=== PATIENT | female | born 1955 | race Caucasian/White ===

== ENCOUNTER 2019-12-26 07:50 | Day surgery (SDC) | payer OTHER ==
[~2019-12-26 07:50] MED LIST: Lactated Ringers 1,000 ML IV SCH; Lidocaine 1%/Sod Bicarbonate in NS 8.4% 1 ML Syringe IDERM PRN; Sodium Chloride 0.9% 10 ML Syringe FLUSH PRN
--- NOTE | 2019-12-26 08:34 | PCM.PREANE ---
Preanesthetic Assessment - Procedure Proposed Procedure: screening colonoscopy - Anesthesia/Transfusion/Family Hx Anesthesia History: Prior Anesthesia Without Reaction Family History of Anesthesia Reaction: No Transfusion History: Prior Transfusion Without Reaction - Review of Systems General: No Symptoms Pulmonary: No Symptoms Cardiovascular: No Symptoms Gastrointestinal: No Symptoms Neurological: No Symptoms Other: Reports: None - Physical Assessment NPO Status Date: 12/26/19 NPO Status Time: 04:15 (prep) Vital Signs: 130/72 71 100% 16 98.4 Height: 5 ft 2 in Weight: 67 kg ASA Class: 2 Mental Status: Alert & Oriented x3 Airway Class: Mallampati = 1 Dentition: Reports: Normal Dentition Thyro-Mental Finger Breadths: 3 Mouth Opening Finger Breadths: 3 ROM/Head Extension: Full Lungs: Clear to Auscultation, Normal Respiratory Effort Cardiovascular: Regular Rate, Regular Rhythm, No Murmurs - Allergies Allergies/Adverse Reactions: Allergies Allergy/AdvReac Type Severity Reaction Status Date / Time mold Allergy Cannot Verified 12/25/19 14:49 Remember tramadol AdvReac Nausea and Verified 12/25/19 14:49 Vomiting dust Allergy Cannot Uncoded 12/25/19 14:49 Remember - Blood Blood Available: No - Acknowledgements Anesthesia Type Planned: MAC Pt an Appropriate Candidate for the Planned Anesthesia: Yes Alternatives and Risks of Anesthesia Discussed w Pt/Guardian: Yes Pt/Guardian Understands and Agrees with Anesthesia Plan: Yes PreAnesthesia Questionnaire HEENT History: Reports: Allergic Rhinitis, Hard of Hearing, Other (See Below) Other HEENT History: dental infection, nasal septal spur, left otalgia, septoplasty, nasal polyectomy Cardiovascular History: Reports: High Cholesterol, Hypertension Respiratory History: Reports: None Gastrointestinal History: Reports: GERD Genitourinary History: Reports: None WELLNESS ASSISTANT History: Reports: Other (See Below) Other OB/BYN History: ectopic Musculoskeletal History: Reports: Other (See Below) Other Musculoskeletal History: right leg numbness, right hip pain, left radial head fracture, carpal tunnel release Neurological History: Reports: Other (See Below) Other Neuro History: multilevel degenerative disc disease Psychiatric History: Reports: None Endocrine/Metabolic History: Reports: Vitamin D Deficiency Hematologic History: Reports: None Immunologic History: Reports: None Oncologic (Cancer) History: Reports: None Dermatologic History: Reports: Other (See Below) Other Dermatologic History: NEVUS, CELLULITIS - Past Surgical History Head Surgeries/Procedures: Reports: None Cardiovascular Surgical History: Reports: None Respiratory Surgical History: Reports: None GI Surgical History: Reports: Colonoscopy Female Surgical History: Reports: D&C, Hysterectomy Male Surgical History: Reports: None Endocrine Surgical History: Reports: None Neurological Surgical History: Reports: Other (See Below) Other Neurological Surgeries/Procedures: [id number] FUSION, L4L5 BONE SPUR REMOVAL, BACK SURGERY X2 Musculoskeletal Surgical History: Reports: Carpal Tunnel, Shoulder Surgery Other Musculoskeletal Surgeries/Procedures:: c5-c7 fused Oncologic Surgical History: Reports: None - SUBSTANCE USE Smoking Status *Q: Never Smoker Tobacco Use Within Last Twelve Months: No Second Hand Smoke Exposure: No Days Per Week of Alcohol Use: 1 Recreational Drug Use History: No - HOME MEDS Home Medications: Home Meds Aspirin [Halfprin] 81 mg PO DAILY 07/13/15 [History] Cholecalciferol (Vitamin D3) [Vitamin D3] 5,000 unit PO DAILY 12/25/19 [History] Krill/Om-3/DHA/EPA/Phospho/Ast [Krill Oil 500 mg Softgel] 500 mg PO DAILY [History] Pantoprazole Sodium [Protonix] 40 mg PO DAILY 12/25/19 [History] amLODIPine Besylate [Norvasc] 2.5 mg PO DAILY 12/25/19 [History] - CURRENT (IN HOUSE) MEDS Current Meds: Current Medications Lactated Ringer's (Ringers, Lactated) 1,000 mls @ 125 mls/hr IV ASDIRECTED ASAEL Lidocaine/Sodium Bicarbonate (Buffered Lidocaine 1% In Ns 8.4%) 0.25 ml IDERM ONETIME PRN PRN Reason: Prior to IV Start Sodium Chloride (Saline Flush) 10 ml FLUSH ASDIRECTED PRN PRN Reason: Keep Vein Open
[2019-12-26] MEDS ORDERED: Midazolam 1 MG/ML 2 ML SDV ONE (08:51)
[2019-12-26] MEDS ORDERED: Lidocaine 1% 4 ML ONE (08:51)
[2019-12-26] MEDS ORDERED: Propofol 200 MG/20 ML SDV ONE (08:51)
[2019-12-26] MEDS ORDERED: fentaNYL 100 MCG/2 ML SDV ONE (08:51)
--- NOTE | 2019-12-26 10:05 | PCM48HPAN ---
Post Anesthesia Note - EVALUATION WITHIN 48HRS OF ANESTHETIC Vital Signs in Normal Range: Yes Patient Participated in Evaluation: Yes Respiratory Function Stable: Yes Airway Patent: Yes Cardiovascular Function Stable: Yes Hydration Status Stable: Yes Pain Control Satisfactory: Yes Nausea and Vomiting Control Satisfactory: Yes Mental Status Recovered: Yes Vital Signs: Last Vital Signs Temp 98.4 F 12/26/19 08:20 Pulse 71 12/26/19 08:20 Resp 16 12/26/19 08:20 BP 130/72 12/26/19 08:20 Pulse Ox 100 12/26/19 08:20 70 16 97.9 94/74 94%
--- NOTE | 2019-12-26 10:07 | PCM.PRNOTE ---
- Free Text/Narrative Note: Date: 12/26/2019 Procedure: screening colonoscopy Endoscopist: Micah Dietz MD Findings: External and grade I internal hemorrhoids. Sigmoid colon was a challenge to navigate likely due to pelvic adhesions. Mild diverticular disease. Prep was excellent. A single subcentimeter polyp in the ascending colon was identified and removed. Detailed Report: The patient was taken to the endoscopy suite and placed in left lateral decubitus position. Timeout was performed, and visual inspection of the anus revealed external hemorrhoidal disease. Digital rectal exam was unremarkable. Lubricated colonoscope was inserted and advanced all the way to the ileocecal valve. The sigmoid colon was difficult to navigate, likely due to what was perceived as pelvic adhesions. The prep was excellent. On withdrawal of the colonoscope from the ileocecal valve, a fixed stool ball within a diverticulum was noted. Attempts were made to remove this with irrigation, and the biopsy forceps, but the ball was too large and lodged. Just distal to this, a subcentimeter polyp was identified. This was biopsied with hot forceps, and the base of the lesion was fulgurated with monopolar energy. The sigmoid colon was noted to have some diverticular disease. On retroflexion of the scope in the rectum, grade 1 internal hemorrhoids were noted. The patient tolerated the procedure well. Micah Dietz MD General Surgery
[2019-12-26 10:32] VITALS: BP 131/76; PULSE 63
== END 2019-12-26 10:46 | disposition home or self-care (01) ==
LOC: JD.SDS 07:50
PROVIDERS: ATTEND Surgery
DX: Z12.11 Encounter for screening for malignant neoplasm of colon (principal); K63.5 Polyp of colon; K64.0 First degree hemorrhoids; K64.4 Residual hemorrhoidal skin tags; K57.30 Diverticulosis of large intestine without perforation or abscess without bleeding; I10 Essential (primary) hypertension; E78.00 Pure hypercholesterolemia, unspecified; E78.5 Hyperlipidemia, unspecified; K21.9 Gastro-esophageal reflux disease without esophagitis; Z88.5 Allergy status to narcotic agent; Z91.09 Other allergy status, other than to drugs and biological substances; Z79.82 Long term (current) use of aspirin; Z79.899 Other long term (current) drug therapy; Z98.890 Other specified postprocedural states; Z80.0 Family history of malignant neoplasm of digestive organs
CPT/HCPCS: 45384; J2001; J2250; J2704; J3010; J7120; 00812

== ENCOUNTER 2022-02-24 00:13 | Emergency (ER) | payer MEDICARE, BC ==
[2022-02-24 00:28] VITALS: BP 178/97; PULSE 115
[2022-02-24] MEDS ORDERED: Lactated Ringers 1,000 ML IV ONE (00:41)
[2022-02-24] MEDS ORDERED: Morphine 4 MG/ML Syringe IVPUSH ONE (00:51)
[2022-02-24] MEDS ORDERED: Ondansetron 4 MG/2 ML SDV IVPUSH ONE (00:51)
[2022-02-24] MEDS ORDERED: Cephalexin 500 MG Cap PO ONE (02:11)
== END 2022-02-24 02:22 | disposition home or self-care (01) ==
LOC: JD.ED 00:13
DX: N39.0 Urinary tract infection, site not specified (principal); E78.00 Pure hypercholesterolemia, unspecified; I10 Essential (primary) hypertension; K21.9 Gastro-esophageal reflux disease without esophagitis; Z88.5 Allergy status to narcotic agent; Z88.8 Allergy status to other drugs, medicaments and biological substances; Z91.048 Other nonmedicinal substance allergy status; Z79.82 Long term (current) use of aspirin; Z79.899 Other long term (current) drug therapy
CPT/HCPCS: 36415; 74176; 80053; 81001; 83605; 83690; 85025; 96374; 96375; 99284; A9270; J2270; J2405; J7120